=== PATIENT | male | born 1950 | race Caucasian/White ===

== ENCOUNTER → 2017-09-23 | Outpatient (CLI) | payer MEDICARE, SELFPAY ==
[~2017-09-23] MED LIST: AMOX500 PO; ASPI81CH PO; ATOR10 PO; BUSP15 PO; DULO30 PO; GABA300 PO; HYDACE5 PO; HYDHCL25 PO; HYDR-86; JANUMET XR 1001 EACH PO; LOSA50 PO; METF500 PO; NAPR500; RANI150; TRESIBA FL100 UNIT/1; TRESIBA FL100 UNIT/1 SC; TRESIBA FL100 UNIT/1 SQ; [UNRECOGNIZED DRUG - OTHER]
== END | disposition home or self-care (01) ==
LOC: LAB 15:58
DX: R10.9 Unspecified abdominal pain (principal)
CPT/HCPCS: 87086